=== PATIENT | male | born 1960 | race Caucasian/White ===

== ENCOUNTER 2022-11-24 14:38 | Inpatient (IN) | payer OTHER, SELFPAY ==
[2022-11-24 14:48] VITALS: BP 186/93; PULSE 99; RESP 22; TEMP 36.6; O2SAT 96; BMI 25.1
--- NOTE | 2022-11-24 15:10 | PC.NURSE ---
Patient weepy stating they he just doesn`t want to be here anymore . Patient provided with water and lunch tray per his request. Patient provided with phone numbers from cell phone, changed into hospital attire, all belongings locked in locker 5.
[2022-11-24 15:29] LABS: MANUAL DIFF FLAG NO
[2022-11-24 15:31] LABS: Basophils Percent Auto 0.5 % (0-2); Eosinophils Absolute Auto 0.2 X10*3/uL (0.0-0.4); Hematocrit 43.7 % (42.0-52.0); Hemoglobin 14.8 g/dl (14.0-18.0); Imm Gran Abs Auto 0.07 X10*3/uL (0.00-0.03); Imm Gran Pct Auto 0.9 % (0.0-0.4); Lymphocytes Percent Auto 13.6 % (20-40); Mean Corpuscular HGB Conc 33.9 g/dl (31.0-36.0); Mean Corpuscular Hemoglobin 29.4 pg (27.0-33.0); Mean Corpuscular Volume 86.9 fL (80.0-98.0); Mean Platelet Volume 9.2 fL (9.4-12.4); Monocytes Absolute Auto 0.5 X10*3/uL (0.1-1.2); Monocytes Percent Auto 6.2 % (2-11); Neutrophils Absolute Auto 5.9 x10*3/uL (2.0-8.3); Neutrophils Percent Auto 76.8 % (45-73); Platelet Count 260 X10*3/uL (160-400); Red Blood Count 5.03 X10*6/uL (4.60-5.80); Red Cell Distribution Width 13.5 % (11.0-16.0); White Blood Count 7.6 X10*3/uL (4.8-10.8)
[2022-11-24 15:32] LABS: Appearance Urine Cloudy; Color Urine Yellow; Glucose Urine UA Negative (Negative); Leukocyte Esterase Urine Negative (Negative); Nitrite Urine Negative (Negative); Urine Blood Negative (Negative); Urine Ketones Negative (Negative); Urine Protein Trace mg/dL (Neg-Trace)
[2022-11-24 15:40] LABS: Amphetamine Screen Urine Not Detected (Not Detect); Barbiturates, Urine Not Detected (Not Detect); Benzodiazepines Screen Urine Not Detected (Not Detect); Cannabinoid Screen Urine Not Detected (Not Detect); Cocaine Screen Urine Not Detected (Not Detect); Fentanyl, urine Not Detected (Not Detect); Opiate Screen Urine Not Detected (Not Detect); Phencyclidine Screen Urine Not Detected (Not Detect)
--- NOTE | 2022-11-24 15:45 | PC.NURSE ---
Girlfriend Pat in to visit. Pat can be reached at [phone]
[2022-11-24 16:02] LABS: Alanine Aminotransferase 26 U/L (0-40); Albumin Level 3.9 g/dL (3.5-5.0); Alkaline Phosphatase 79 U/L (39-117); Anion Gap 15 (12-20); Aspartate Amino Transferase 12 U/L (5-37); Bilirubin Total 0.8 mg/dL (0.0-1.0); Blood Urea Nitrogen 16 mg/dL (9-16); Calcium 9.7 mg/dL (8.4-10.2); Carbon Dioxide 23 mmol/L (22-29); Chloride 104 mmol/L (96-108); Estimated Glomerular Filt Rate > 60; Ethanol < 10 mg/dL; Glucose Random 146 mg/dL (60-115); Potassium 3.8 mmol/L (3.3-5.1); Sodium 138 mmol/L (135-145)
[2022-11-24 16:03] LABS: Acetaminophen LAB < 17 mcg/mL (<30); Salicylate < 5.0 mg/dL (15-30)
--- NOTE | 2022-11-24 16:37 | ED_ITS ---
HPI - Psych General Chief Complaint: Psychiatric Symptoms Stated Complaint: crisis/ feeling suicidal Time Seen by Provider: 11/24/22 16:01 Source: patient and RN notes reviewed Mode of arrival: ambulatory Limitations: no limitations History of Present Illness HPI Narrative: This is a 62-year-old male, with a past medical history of hypothyroidism, depression, hypertension and hyperlipidemia, presenting to the emergency department with complaints of suicidal and homicidal ideations. Patient states that he has been under a significant amount of life stressors, and states that over this past month he has had intermittent thoughts of killing himself, his girlfriend and his cat. He states that he had a noose around his neck but did not think of a place that he could kill himself. He often time wishes that his girlfriend would get into a fatal car accident so he would no longer have to deal with the stressors that she is causing him. Patient also reports that his job is causing him stress. He also reports that his father in February. He does have a therapist who he speaks to on a regular basis who recommended him to come here to be further evaluated. He states that he is on Wellbutrin, unknown dose or diagnosis. He states that he also forgot to take his high blood pressure medication. He had a prior psych hospitalization at [facility] in 2004. He drinks alcohol socially, no illicit drug use, tobacco use. No auditory or visual hallucinations. No other complaints or concerns at this time. MD complaint: suicidal ideation, feels depressed, homicidal ideation and anxiety Onset (ago): month(s) Duration: constant History of same: Yes Relieving factors: therapy Exacerbating factors: none Context: not taking psychiatric medications and significant life stressor Associated psychiatric symptoms: depression, suicidal ideation and homicidal ideation Associated symptoms: denies other symptoms Treatments prior to arrival: none If self harm: admits thoughts of self harm and has plan Details of plan: hang himself Related Data Home Medications Medication Instructions Recorded Confirmed budesonide 160 mcg-glycopyr 9 2 inh inhalation DAILY 11/24/22 11/24/22 mcg-formot 4.8 mcg/actuation HFA inhaler (Breztri Aerosphere) bupropion HCl 150 mg 24 hr tablet, 150 mg PO DAILY 11/24/22 11/24/22 extended release levothyroxine 175 mcg tablet 175 mcg PO DAILY 11/24/22 11/24/22 lisinopril 20 mg tablet 20 mg PO DAILY 11/24/22 11/24/22 lorazepam 0.5 mg tablet 0.5 mg PO DAILY PRN Anxiety 11/24/22 11/24/22 tamsulosin 0.4 mg capsule 0.4 mg PO DAILY 11/24/22 11/24/22 trazodone 50 mg tablet 50 mg PO BEDTIME 11/24/22 11/24/22 Allergies Allergy/AdvReac Type Severity Reaction Status Date / Time cat dander Allergy Runny Nose Verified 11/24/22 14:48 dog dander Allergy Runny Nose Verified 11/24/22 14:48 pollen extracts Allergy Runny Nose Verified 11/24/22 14:48 Review of Systems 2 Review of Systems: Yes all other systems are reviewed and are negative Constitutional: Constitutional: Reports as per [facility] Past Medical History Medical History (Updated 11/24/22 @ 19:17 by WANDA Rodriguez) Hypertension Social History Social History Smoked in Last 30 Days: No Use of substances other than those prescribed or required for medical reasons: Yes Substance Use Type: Marijuana Substance Use Frequency: Monthly Advance Directives: No Advance Directives Information Provided: No Healthcare Proxy: No Guardian: No Physical Exam 2 Vital Signs: Vital Signs: Last Vital Signs Temp 97.9 F 11/24/22 19:58 Pulse 85 11/24/22 19:58 Resp 20 11/24/22 19:58 BP 139/89 11/24/22 19:58 Pulse Ox 95 11/24/22 19:58 O2 Del Method Room Air 11/24/22 19:58 BMI result Body Mass Index 25.1 Const: Other: tearful General: cooperative, comfortable and no acute distress O rientation/consciousness: patient oriented x3 Limitations: no limitations HEENT: Head: Yes normal to inspection, Yes normocephalic and Yes atraumatic Ears: hearing grossly normal bilaterally General nose exam: Normal external nose present Face and sinus: Yes normal facial exam Mouth: Normal oral and palatal mucosa present, oropharynx normal and moist mucous membranes Throat: Yes posterior oropharynx normal Eyes: General: appearance normal, both eyes and all related structures E yelids: Yes eyelids normal Conjunctivae: conjunctivae normal Sclerae: s clerae normal Pupils: Equal, round and reactive pupils present EOM: EOMs intact bilaterally Neck: Neck: Yes normal visual inspection, Yes full ROM and Yes no lymphadenopathy Lymphatic: no lymphadenopathy noted Chest: Chest palpation & inspection: normal inspection of the chest Resp: Effort & Inspection: normal respiratory effort and able to speak in complete sentences Auscultation: clear to auscultation bilaterally, no crackles, no rales, no rhonchi and no wheezes Cardio: Rate: regular rate Rhythm: regular rhythm Heart sounds: S1 normal heart sound present and S2 normal heart sound present GI: Inspection: Yes normal to inspection Skin: General skin exam: no rashes or lesions noted Trauma: no lacerations or abrasions Wounds: no wounds Neuro: General: patient oriented x3 and moves all extremities Cranial nerves: Yes Equal, round and reactive pupils present Extrem: General: Yes normal to inspection Right upper extremity: normal to inspection Left upper extremity: normal to inspection Right lower extremity: normal to inspection Left lower extremity: normal to inspection Psych: Appearance: grossly normal Mental Status: mental status grossly normal Speech and movement: Normal speech and movement present Affect: n ormal affect Attitude: cooperative Thought process: Normal thought process present Thought content: Suicidality present, Homicidality present and Depressive thoughts present Insight: Poor insight present (Psych) J udgement: Poor judgement present (Psych) Course Reevaluation(s) Reevaluation #1: TSH within normal limits. Patient medically cleared, pending crisis in care team consultation. Will continue to monitor. Time: 18:00 Reevaluation #2: patient was seen and evaluated by the crisis team. Patient qualifying for bed search and inpatient psychiatric admission. Bed request placed. Med reconciliation performed. transfer care initiated. Time: 19:08 Medications Administered Generic Name Dose Route Start Last Admin Trade Name Chrisq PRN Reason Stop Dose Admin Lisinopril 20 mg 11/24/22 21:00 11/24/22 20:11 Lisinopril 20 Mg Tablet PO 20 mg BEDTIME ALDO Administration Protocol Tamsulosin HCl 0.4 mg 11/24/22 21:00 11/24/22 20:11 Tamsulosin Hcl 0.4 Mg Capsule PO 0.4 mg BEDTIME ALDO Administration Trazodone HCl 50 mg 11/24/22 21:00 11/24/22 20:11 Trazodone Hcl 50 Mg Tablet PO 50 mg BEDTIME ALDO Administration Medical Decision Making Medical Decision Making MDM Narrative: 62-year-old male, with a past medical history of depression, hypothyroidism, hypertension, and hyperlipidemia, presenting to the emergency department with complaints of suicidal and homicidal ideations. On arrival, patient hypertensive at 186/93, respirations 22, likely due to stressors. I discussed at length patient's presentation, he does have a suicidal plan also reporting homicidal ideations. repeat blood pressure 143/95, all other vital signs within normal limits. Patient states that he has been without his levothyroxine for several months, was taking levothyroxine 200 mcgs daily. Patient has no chest pain, shortness of breath, abdominal pain, nausea, vomiting or diarrhea. No auditory or visual hallucinations. Plan: Labs, urine drug screen, ethanol level, TSH Differential Diagnosis Differential Diagnoses: The differential diagnosis associated with the presentation includes depression, anxiety, suicidal ideation, homicidal ideation Admission/Observation Consideration of admission/observation: Escalation of care including admission/observation considered escalation of care including admission observation was considered given suicidality and homicidality Lab Data [facility] Lab Attestation statement: I reviewed the patient's lab results. no leukocytosis, stable H&H, electrolytes within normal limits, mildly hyperglycemic at 1:46 a.m. however not fasting. Urine drug screen without any evidence of infection. Urine drug screen unremarkable, ethyl alcohol less than 10. 11/24/22 15:24 11/24/22 15:24 Labs: Lab Results 11/24/22 11/24/22 Range/Units 15:15 15:24 WBC 7.6 (4.8-10.8) X10*3/uL RBC 5.03 (4.60-5.80) X10*6/uL Hgb 14.8 (14.0-18.0) g/dl Hct 43.7 (42.0-52.0) % MCV 86.9 (80.0-98.0) fL MCH 29.4 (27.0-33.0) pg MCHC 33.9 (31.0-36.0) g/dl RDW 13.5 (11.0-16.0) % Plt Count 260 (160-400) X10*3/uL MPV 9.2 L (9.4-12.4) fL Immature Gran % (Auto) 0.9 H (0.0-0.4) % Neut % (Auto) 76.8 H (45-73) % Lymph % (Auto) 13.6 L (20-40) % [place] % (Auto) 6.2 (2-11) % Eos % (Auto) 2.0 (0-4) % Baso % (Auto) 0.5 (0-2) % Lymph # (Auto) 1.0 L (1.2-4.9) X10*3/uL [place] # (Auto) 0.5 (0.1-1.2) X10*3/uL Eos # (Auto) 0.2 (0.0-0.4) X10*3/uL Baso # (Auto) 0.0 (0.0-0.2) X10*3/uL Abs Immat Gran (auto) 0.07 H (0.00-0.03) X10*3/uL Absolute Neuts (auto) 5.9 (2.0-8.3) x10*3/uL Absolute Nucleated RBC 0.000 (0.0-0.012) X10*3/uL Nucleated RBC % (auto) 0.0 (0.0-0.2) /100WBC Sodium 138 (135-145) mmol/L Potassium 3.8 (3.3-5.1) mmol/L Chloride 104 (96-108) mmol/L Carbon Dioxide 23 (22-29) mmol/L Anion Gap 15 (12-20) BUN 16 (9-16) mg/dL Creatinine 1.02 (0.5-1.4) mg/dL Estim Creat Clear Calc 81.0 Estimated GFR > 60 Random Glucose 146 H (60-115) mg/dL Calcium 9.7 (8.4-10.2) mg/dL Total Bilirubin 0.8 (0.0-1.0) mg/dL AST 12 (5-37) U/L ALT 26 (0-40) U/L Alkaline Phosphatase 79 (39-117) U/L Total Protein 7.0 (6.5-8.0) g/dL Albumin 3.9 (3.5-5.0) g/dL TSH 2.03 (0.32-4.0) uIU/mL Urine Color Yellow Urine Appearance Cloudy Urine pH 7.0 (5.0-9.0) Ur Specific [place] 1.020 (1.005-1.025) Urine Protein Trace (Neg-Trace) mg/dL Urine Glucose (UA) Negative (Negative) mg/dL Urine Ketones Negative (Negative) mg/dL Urine Blood Negative (Negative) Urine Nitrite Negative (Negative) Ur Leukocyte Esterase Negative (Negative) Salicylates < 5.0 L (15-30) mg/dL Urine Opiates Screen Not Detected (Not Detect) Urine Fentanyl Screen Not Detected (Not Detect) Acetaminophen < 17 (<30) mcg/mL Ur Barbiturates Screen Not Detected (Not Detect) Ur Phencyclidine Scrn Not Detected (Not Detect) Ur Amphetamines Screen Not Detected (Not Detect) U Benzodiazepines Scrn Not Detected (Not Detect) Urine Cocaine Screen Not Detected (Not Detect) U Marijuana (THC) Screen Not Detected (Not Detect) Ethyl Alcohol < 10 mg/dL Discharge Plan Discharge Clinical Impression: Suicidal ideation, Homicidal ideations Patient Disposition: Admitted As Inpatient Interventions: [place]-Suicide Risk Severity Scale Last Done: 11/24/22 14:53
[2022-11-24 16:40] VITALS: BP 143/95; PULSE 77; RESP 18; TEMP 36.6; O2SAT 97
[2022-11-24 17:51] LABS: Thyroid Stimulating Hormone 2.03 uIU/mL (0.32-4.0)
[2022-11-24 19:58] VITALS: BP 139/89; PULSE 85; RESP 20; TEMP 36.6; O2SAT 95
[2022-11-24] MEDS: traZODone HCL 50 MG TABLET PO (20:11)
[2022-11-24] MEDS: Tamsulosin HCL 0.4 MG CAPSULE PO (20:11)
[2022-11-24] MEDS: lisinopriL 20 MG TABLET PO (20:11)
--- NOTE | 2022-11-25 | ECG_ITS ---
Test Reason : BED SEARCH Blood Pressure : / mmHG Vent. Rate : 067 BPM Atrial Rate : 067 BPM P-R Int : 138 ms QRS Dur : 106 ms QT Int : 410 ms P-R-T Axes : 030 084 028 degrees QTc Int : 433 ms Normal sinus rhythm Nonspecific ST abnormality Inferior leads RSR' or QR pattern in V1 suggests right ventricular conduction delay Abnormal ECG No previous ECGs available Referred By: America Mcdowell Electronically Signed By:NICOLE LIZAMA MD
[2022-11-25 01:37] LABS: COVID-19 Test Negative (Negative); IDNOW Serial# 08D9AD1C
[2022-11-25 05:24] VITALS: BP 126/54; PULSE 65; RESP 16; TEMP 36.2; O2SAT 97
[2022-11-25] MEDS: Levothyroxine Sodium 175 MCG TABLET PO (05:35)
--- NOTE | 2022-11-25 06:26 | PC.NURSE ---
Patient slept through the night, no distress observed/reported, disposition per care team is section 12 inpatient bed search, pre-accepted to either M3 or M5, medication compliant, behavior non concerning, labs completed/resulted, patient is on one to one while on CPAP, will continue to monitor.
[2022-11-25] MEDS: buPROPion HCl XL 150 MG TAB.ER.24H PO (09:10)
--- NOTE | 2022-11-25 10:45 | PC.NURSE ---
Gilbert was in his room resting this morning. He was agreeable to taking his scheduled Wellbutrin and ate 100% of his breakfast. Affect flat when engaged and then quickly tearful. Gilbert requested the phone and spoke with his step mother which he reprots was fine . Denies HI/AVH does endorse SI and verbalize's feeling safe while in the hospital. No behavioral concerns
[2022-11-25 12:22] VITALS: BP 123/82; PULSE 74; RESP 16; TEMP 36.3; O2SAT 96
[2022-11-25 16:50] VITALS: RESP 18
--- OUTSIDE RECORDS SUMMARY | 2022-11-25 18:36 | XMS_ITS | Continuity of Care Document ---
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
--- OUTSIDE RECORDS SUMMARY | 2022-11-25 18:36 | XMS_ITS | Continuity of Care Document ---
Author Name Unknown Organization 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 [address] [place] [address]- Attending Physician: Admtr, Ar8 Admitting Physician: Admtr, Ar8 Referring Physician: Admtr, Ar8 Allergies, Adverse Reactions, Alerts Substance Reaction Severity Status NKA Active
[2022-11-25] MEDS: lisinopriL 20 MG TABLET PO (21:18)
[2022-11-25] MEDS: Tamsulosin HCL 0.4 MG CAPSULE PO (21:19)
[2022-11-25 21:56] VITALS: BP 138/70; PULSE 90; RESP 18; TEMP 36.7; O2SAT 95
[2022-11-25 21:57] VITALS: BMI 28.6
[2022-11-25] MEDS: LORazepam 0.5 MG TABLET PO (22:27)
[2022-11-25 23:57] VITALS: PULSE 90; O2SAT 95
--- NOTE | 2022-11-26 01:44 | PC.ADMIT ---
Gilbert Azevedo is a 62yo cisgender male, admitted to M3 from [facility] ED on a CV for treatment of unspecified depressive disorder. He reported increase in depressive symptoms with life stressors including loss of his father earlier in the year, relationship issues which have become unmanageable. He states that he have been experiencing insomnia,weight loss, increase agitation and thought of self harm. He reported having having SI with plan of hanging himself from the apartment with a rope which he showed his partner during an argument several days ago. He stated that the reason why he didn't hang himself is because of people who care about him. He reports feelings of helplessness, hopelessness and deep depression. He endorsed thought of killing his girlfriend, then the cat and himself. He is alert and oriented X4, calm and cooperative, mood is depressed and affect is flat. He have medical conditions of asthma and sleep apnea, slept with the aid of CPAP at night. Meds compliant, denies AH/VH but endorses SI with no plan. Admission process completed, treatment plan and safety tools initiated
[2022-11-26] MEDS: Levothyroxine Sodium 175 MCG TABLET PO (06:57)
[2022-11-26] MEDS: buPROPion HCl XL 150 MG TAB.ER.24H PO (08:32)
[2022-11-26 08:40] VITALS: BP 104/61; PULSE 77; RESP 16; TEMP 36.3; O2SAT 98
[2022-11-26 09:09] LABS: Estimated Average Glucose 117 mg/dL; Hemoglobin A1c % 5.7 % (<6.0)
[2022-11-26 09:24] LABS: Cholesterol 268 mg/dL (<200); HDL Cholesterol 37 mg/dL (>40); LDL Cholesterol Calculated 156 mg/dL (<100); Magnesium 2.1 mg/dL (1.6-2.6); Triglycerides 376 mg/dL (<150)
[2022-11-26 09:47] LABS: Folate 7.3 ng/mL (> or = 4.0); Vitamin B12 299 pg/mL (200-900)
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
[2022-11-26] MEDS: FLUoxetine HCl 10 MG CAPSULE PO (16:09)
[2022-11-26] MEDS: LORazepam 0.5 MG TABLET PO (17:24)
[2022-11-26 19:35] VITALS: BP 153/79; PULSE 85; RESP 18; TEMP 36.9; O2SAT 96
[2022-11-26] MEDS: Tamsulosin HCL 0.4 MG CAPSULE PO (21:23)
[2022-11-26] MEDS: lisinopriL 20 MG TABLET PO (21:23)
[2022-11-26 21:50] VITALS: BP 161/78; PULSE 100; RESP 18; TEMP 37.1; O2SAT 93
[2022-11-26] MEDS: traZODone HCL 50 MG TABLET PO (23:24)
[2022-11-27 00:10] VITALS: PULSE 80; RESP 16; O2SAT 96
[2022-11-27] MEDS: Levothyroxine Sodium 175 MCG TABLET PO (06:45)
[2022-11-27 07:00] VITALS: BMI 28.6
[2022-11-27 07:20] VITALS: BP 130/73; PULSE 85; RESP 18; TEMP 36.4; O2SAT 98
[2022-11-27] MEDS: FLUoxetine HCl 10 MG CAPSULE PO (08:40)
[2022-11-27] MEDS: buPROPion HCl XL 300 MG TAB.ER.24H PO (08:40)
--- NOTE | 2022-11-27 15:32 | HO.PSYCHPN ---
Subjective Subjective Date of Service: 11/27/22 Reason For Visit: Depression w/ SI, HI Interim History: calm, cooperative. struggling with how to extricate himself from his relationship with his GF. discuss legal approaches, planning for discharge, medications. pt feeling trapped and hopeless at the moment. per staff, slept well. attending groups. phone call yesterday, upset afterward. Mental Status Exam Mental Status Exam Narrative: dressed in street clothes, adequately groomed. no PMA/PMR. cooperative. speech nml amount, nml rate, loudness, tone, latency. thoughts linear and logical. affect constricted, non-labile, normo-intense. no SI/HI/AVH expressed. Diagnostics Vital Signs (24Hr): Vital Signs - 24 hr 11/26/22 19:35 11/26/22 21:50 11/27/22 00:10 Temperature 98.4 F 98.8 F Pulse Rate 85 100 Respiratory Rate 18 18 16 Blood Pressure 153/79 H 161/78 H Pulse Oximetry 96 93 Oxygen Delivery Method Room Air Room Air 11/27/22 07:20 Temperature 97.5 F Pulse Rate 85 Respiratory Rate 18 Blood Pressure 130/73 Pulse Oximetry 98 Oxygen Delivery Method Room Air BMI result Body Mass Index 28.6 Labs 11/24/22 15:24 11/24/22 15:24 Labs: Laboratory Results - last 48 hr 11/26/22 08:26 Estimat Average Glucose 117 Hemoglobin A1c % 5.7 Magnesium 2.1 Triglycerides 376 H Cholesterol 268 H LDL Cholesterol, Calc 156 H HDL Cholesterol 37 L Vitamin B12 299 Folate 7.3 Free T4 1.00 Medications Medications Current Medications Acetaminophen (Acetaminophen 325 Mg Tablet) 650 mg PO Q6H PRN PRN Reason: Headache/Pain Mild Scale (1-3) Al Hydroxide/Mg Hydroxide (Magnesium Hydrox/Alum Hydrox 30 Ml Oral.Susp) 30 ml PO Q6H PRN PRN Reason: Heartburn/Nausea Bupropion HCl (Bupropion Hcl Xl 300 Mg Tab.Er.24h) 300 mg PO DAILY [facility] Last Admin: 11/27/22 08:40 Dose: 300 mg Fluoxetine HCl (Fluoxetine Hcl 10 Mg Capsule) 10 mg PO DAILY [facility] Last Admin: 11/27/22 08:40 Dose: 10 mg Hydroxyzine HCl (Hydroxyzine Hcl 25 Mg Tablet) 25 mg PO Q6H PRN PRN Reason: Anxiety Levothyroxine Sodium (Levothyroxine Sodium 175 Mcg Tablet) 175 mcg PO DAILY@0600 [facility] Last Admin: 11/27/22 06:45 Dose: 175 mcg Lisinopril (Lisinopril 20 Mg Tablet) 20 mg PO BEDTIME [facility]; Protocol Last Admin: 11/26/22 21:23 Dose: 20 mg Lorazepam (Lorazepam 0.5 Mg Tablet) 0.5 mg PO DAILY PRN PRN Reason: Anxiety Last Admin: 11/26/22 17:24 Dose: 0.5 mg Magnesium Hydroxide (Milk Of Magnesia 30 Ml Oral.Susp) 30 ml PO DAILY PRN PRN Reason: Constipation Non-Formulary Medication (Pqklnpdbya-Hbyiytit-Tjsdrjvxjw [Breztri Aerosphere]) 2 inhalation INHALE DAILY [facility] Tamsulosin HCl (Tamsulosin Hcl 0.4 Mg Capsule) 0.4 mg PO BEDTIME [facility] Last Admin: 11/26/22 21:23 Dose: 0.4 mg Trazodone HCl (Trazodone Hcl 50 Mg Tablet) 50 mg PO BEDTIME [facility] Last Admin: 11/26/22 23:24 Dose: 50 mg Trazodone HCl (Trazodone Hcl 50 Mg Tablet) 50 mg PO BEDTIME PRN PRN Reason: Insomnia Allergies Allergies Allergy/AdvReac Type Severity Reaction Status Date / Time cat dander Allergy Runny Nose Verified 11/24/22 14:48 dog dander Allergy Runny Nose Verified 11/24/22 14:48 pollen extracts Allergy Runny Nose Verified 11/24/22 14:48 Assessment & Plan Assessment & Plan (1) Major depressive disorder: Qualifiers: Major depression recurrence: unspecified whether recurrent Active/Remission status: currently active Major depression episode severity: moderate Qualified Code(s): F32.1 - Major depressive disorder, single episode, moderate Status: Acute Code(s): F32.9 - Major depressive disorder, single episode, unspecified Plan 11/26: increase wellbutrin from 150 mg daily to 300 mg daily as of tomorrow. start prozac 10 mg today. collateral. 11/27: no side effects. plan to continue meds and work on coping skills, processing emotions. continue current mgmt. Reason for continued inpatient stay Substantial Risk for: inability to function Time Spent With Patient Time: Total time managing care of this patient today ____ minutes.
[2022-11-27 21:30] VITALS: BP 135/85; PULSE 84; RESP 18; TEMP 36.5; O2SAT 98
[2022-11-27] MEDS: lisinopriL 20 MG TABLET PO (21:56)
[2022-11-27] MEDS: Tamsulosin HCL 0.4 MG CAPSULE PO (21:56)
[2022-11-28] MEDS: Levothyroxine Sodium 175 MCG TABLET PO (07:05)
[2022-11-28 08:00] VITALS: BP 118/57; PULSE 71; RESP 18; TEMP 36.2; O2SAT 98
[2022-11-28] MEDS: FLUoxetine HCl 10 MG CAPSULE PO (08:46)
[2022-11-28] MEDS: buPROPion HCl XL 300 MG TAB.ER.24H PO (08:46)
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
[2022-11-28] MEDS: LORazepam 0.5 MG TABLET PO (19:28)
[2022-11-28 21:50] VITALS: BP 165/93; PULSE 82; RESP 18; TEMP 36.3; O2SAT 96
[2022-11-28] MEDS: traZODone HCL 25 MG HALFTAB PO (21:57)
[2022-11-28] MEDS: lisinopriL 20 MG TABLET PO (21:58)
[2022-11-28] MEDS: Tamsulosin HCL 0.4 MG CAPSULE PO (21:58)
[2022-11-29] MEDS: Levothyroxine Sodium 175 MCG TABLET PO (06:20)
[2022-11-29 08:40] VITALS: BP 117/59; PULSE 82; RESP 18; O2SAT 96
[2022-11-29] MEDS: buPROPion HCl XL 300 MG TAB.ER.24H PO (08:41)
[2022-11-29] MEDS: FLUoxetine HCl 10 MG CAPSULE PO (08:41)
--- NOTE | 2022-11-29 10:19 | P.PNPSI_ITS ---
Subjective Subjective Date of Service: 11/29/22 Reason For Visit: Depression w/ SI, HI Subjective Notes: Conditional Voluntary Interim History: Pt seems to be better dealing with breakup with partner who has pathological jealousy works for [employer] There is a clear ongoing fragility reactivity anticipation Medication Compliance: Yes Mental Status Exam Mental Status Exam Patient Appearance: Well Grooomed Patient Orientation: Person, Place, Time and Situation Level of Consciousness: Awake and Appropriate Patient Behavior: Appropriate Mood Description: Depressed and Blunted Affect Description: Appropriate and Constricted Patient Cognition Impaired: No Ability to Follow Directions: Good Speech Pattern: Clear Memory Description: Intact Hallucinations: None Delusions: Not Present Thought Process: Intact and Goal Oriented Thought Content: positive for Goal Oriented, positive for Preoccupation, negative for Suicidal Ideation or negative for Homicidal Ideation Depressive Symptoms: Increased Anxiety, Increased Fatigue, Loss of Energy and Difficulty Concentrating Judgement: Fair Judgement and Insight: trying to manage issues around break up continues to feel somewhat fragile Diagnostics Vital Signs (24Hr): Vital Signs - 24 hr 11/28/22 21:50 11/29/22 08:40 Temperature 97.3 F Pulse Rate 82 82 Respiratory Rate 18 18 Blood Pressure 165/93 H 117/59 L Pulse Oximetry 96 96 Oxygen Delivery Method Room Air Room Air BMI result Body Mass Index 28.6 Labs 11/24/22 15:24 11/24/22 15:24 Medications Medications Current Medications Acetaminophen (Acetaminophen 325 Mg Tablet) 650 mg PO Q6H PRN PRN Reason: Headache/Pain Mild Scale (1-3) Al Hydroxide/Mg Hydroxide (Magnesium Hydrox/Alum Hydrox 30 Ml Oral.Susp) 30 ml PO Q6H PRN PRN Reason: Heartburn/Nausea Bupropion HCl (Bupropion Hcl Xl 300 Mg Tab.Er.24h) 300 mg PO DAILY [facility] Last Admin: 11/29/22 08:41 Dose: 300 mg Fluoxetine HCl (Fluoxetine Hcl 10 Mg Capsule) 10 mg PO DAILY [facility] Last Admin: 11/29/22 08:41 Dose: 10 mg Hydroxyzine HCl (Hydroxyzine Hcl 25 Mg Tablet) 25 mg PO Q6H PRN PRN Reason: Anxiety Levothyroxine Sodium (Levothyroxine Sodium 175 Mcg Tablet) 175 mcg PO DAILY@0600 [facility] Last Admin: 11/29/22 06:20 Dose: 175 mcg Lisinopril (Lisinopril 20 Mg Tablet) 20 mg PO BEDTIME [facility]; Protocol Last Admin: 11/28/22 21:58 Dose: 20 mg Lorazepam (Lorazepam 0.5 Mg Tablet) 0.5 mg PO DAILY PRN PRN Reason: Anxiety Last Admin: 11/28/22 19:28 Dose: 0.5 mg Magnesium Hydroxide (Milk Of Magnesia 30 Ml Oral.Susp) 30 ml PO DAILY PRN PRN Reason: Constipation Non-Formulary Medication (Zsvjplevkk-Apgekihx-Xytlnlrdpt [Breztri Aerosphere]) 2 inhalation INHALE DAILY [facility] Tamsulosin HCl (Tamsulosin Hcl 0.4 Mg Capsule) 0.4 mg PO BEDTIME [facility] Last Admin: 11/28/22 21:58 Dose: 0.4 mg Trazodone HCl (Trazodone Hcl 50 Mg Tablet) 50 mg PO BEDTIME PRN PRN Reason: Insomnia Trazodone HCl (Trazodone Hcl 25 Mg Halftab) 25 mg PO BEDTIME [facility] Last Admin: 11/28/22 21:57 Dose: 25 mg Allergies Allergies Allergy/AdvReac Type Severity Reaction Status Date / Time cat dander Allergy Runny Nose Verified 11/24/22 14:48 dog dander Allergy Runny Nose Verified 11/24/22 14:48 pollen extracts Allergy Runny Nose Verified 11/24/22 14:48 Assessment & Plan Assessment & Plan (1) Major depressive disorder: Qualifiers: Active/Remission status: currently active Major depression episode severity: moderate Major depression recurrence: unspecified whether recurrent Qualified Code(s): F32.1 - Major depressive disorder, single episode, moderate Status: Acute Code(s): F32.9 - Major depressive disorder, single episode, unspecified Plan 11/26: increase wellbutrin from 150 mg daily to 300 mg daily as of tomorrow. start prozac 10 mg today. collateral. 11/27: no side effects. plan to continue meds and work on coping skills, processing emotions. continue current mgmt. 11/28: decrease trazodone dosing from 50 to 25 due to morning sedation. goal to work on coping skills/distress tolerance. continue current Tx otherwise. remains labile, overwhelmed. 11/29/22 Pt seem less distraught calmer trying to extricate himself from relation ship Reason for continued inpatient stay Substantial Risk for: harm to self and rapid decompensation Time Spent With Patient Time: Total time managing care of this patient today ____ minutes.
[2022-11-29 19:55] VITALS: BP 162/95; PULSE 84; RESP 16; TEMP 36.6; O2SAT 95
[2022-11-29] MEDS: lisinopriL 20 MG TABLET PO (20:40)
[2022-11-29] MEDS: Tamsulosin HCL 0.4 MG CAPSULE PO (20:40)
[2022-11-30] MEDS: hydrOXYzine HCL 25 MG TABLET PO (03:58)
[2022-11-30] MEDS: Levothyroxine Sodium 175 MCG TABLET PO (06:26)
[2022-11-30 08:16] VITALS: BP 144/90; PULSE 86; RESP 16; TEMP 36.4; O2SAT 97
[2022-11-30] MEDS: FLUoxetine HCl 10 MG CAPSULE PO (09:12)
[2022-11-30] MEDS: buPROPion HCl XL 300 MG TAB.ER.24H PO (09:12)
[2022-11-30 21:00] VITALS: BP 150/90; PULSE 90; RESP 16; TEMP 36.4; O2SAT 96
[2022-11-30] MEDS: Tamsulosin HCL 0.4 MG CAPSULE PO (21:14)
[2022-11-30] MEDS: lisinopriL 20 MG TABLET PO (21:14)
[2022-11-30] MEDS: QUEtiapine Fumarate 25 MG TABLET PO (21:15)
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
[2022-12-01] MEDS: Levothyroxine Sodium 175 MCG TABLET PO (06:38)
[2022-12-01 08:23] VITALS: BP 128/60; PULSE 72; RESP 16; TEMP 36.4; O2SAT 92
[2022-12-01] MEDS: FLUoxetine HCl 20 MG CAPSULE PO (08:43)
[2022-12-01] MEDS: buPROPion HCl XL 150 MG TAB.ER.24H PO (08:43)
--- NOTE | 2022-12-01 13:03 | PM.PSYDC ---
DS: Providers Provider Date of Service: 12/01/22 Date of admission: 11/25/22 18:23 Primary care physician: Unknown Physician DS: Diagnosis Discharge Diagnosis (1) Major depressive disorder: Status: Acute DS: Medications Discharge Medications Home Medications: Home Medications Medication Instructions Recorded Confirmed budesonide 160 mcg-glycopyr 9 2 inh inhalation DAILY 11/24/22 11/24/22 mcg-formot 4.8 mcg/actuation HFA inhaler (Breztri Aerosphere) bupropion HCl 150 mg 24 hr tablet, 150 mg PO DAILY 11/24/22 11/24/22 extended release levothyroxine 175 mcg tablet 175 mcg PO DAILY 11/24/22 11/24/22 lisinopril 20 mg tablet 20 mg PO DAILY 11/24/22 11/24/22 lorazepam 0.5 mg tablet 0.5 mg PO DAILY PRN Anxiety 11/24/22 11/24/22 tamsulosin 0.4 mg capsule 0.4 mg PO DAILY 11/24/22 11/24/22 trazodone 50 mg tablet 50 mg PO BEDTIME 11/24/22 11/24/22 Previous Rx's Medication Instructions Recorded fluoxetine 20 mg capsule 20 mg PO DAILY 30 days #30 caps 12/01/22 hydroxyzine HCl 25 mg tablet 25 mg PO BID PRN Anxiety 30 days 12/01/22 #60 tabs quetiapine 25 mg tablet 25 mg PO BEDTIME 30 days #30 tabs 12/01/22 Mental Status Exam Mental Status Exam Narrative: dressed in street clothes, adequately groomed. no PMA/PMR. cooperative. speech nml amount, nml rate, loudness, tone, latency. thoughts linear and logical. affect constricted, mod-labile (tearful), normo-intense. mood anxious. scared. sad. no SI/HI/AVH. Data Data Completed and Pending Completed studies during hospitalization [Text1]: 11/24/22 11/24/22 11/25/22 15:15 15:24 01:14 WBC 7.6 RBC 5.03 Hgb 14.8 Hct 43.7 MCV 86.9 MCH 29.4 MCHC 33.9 RDW 13.5 Plt Count 260 MPV 9.2 L Immature Gran % (Auto) 0.9 H Neut % (Auto) 76.8 H Lymph % (Auto) 13.6 L [place] % (Auto) 6.2 Eos % (Auto) 2.0 Baso % (Auto) 0.5 Lymph # (Auto) 1.0 L [place] # (Auto) 0.5 Eos # (Auto) 0.2 Baso # (Auto) 0.0 Abs Immat Gran (auto) 0.07 H Absolute Neuts (auto) 5.9 Absolute Nucleated RBC 0.000 Nucleated RBC % (auto) 0.0 Sodium 138 Potassium 3.8 Chloride 104 Carbon Dioxide 23 Anion Gap 15 BUN 16 Creatinine 1.02 Estim Creat Clear Calc 81.0 Estimated GFR > 60 Random Glucose 146 H Estimat Average Glucose Hemoglobin A1c % Calcium 9.7 Magnesium Total Bilirubin 0.8 AST 12 ALT 26 Alkaline Phosphatase 79 Total Protein 7.0 Albumin 3.9 Triglycerides Cholesterol LDL Cholesterol, Calc HDL Cholesterol Vitamin B12 Folate TSH 2.03 Free T4 Urine Color Yellow Urine Appearance Cloudy Urine pH 7.0 Ur Specific [place] 1.020 Urine Protein Trace Urine Glucose (UA) Negative Urine Ketones Negative Urine Blood Negative Urine Nitrite Negative Ur Leukocyte Esterase Negative Salicylates < 5.0 L Urine Opiates Screen Not Detected Urine Fentanyl Screen Not Detected Acetaminophen < 17 Ur Barbiturates Screen Not Detected Ur Phencyclidine Scrn Not Detected Ur Amphetamines Screen Not Detected U Benzodiazepines Scrn Not Detected Urine Cocaine Screen Not Detected U Marijuana (THC) Screen Not Detected Ethyl Alcohol < 10 COVID-19 ([facility]) Negative COVID-19 Clin Com See Note 11/26/22 08:26 WBC RBC Hgb Hct MCV MCH MCHC RDW Plt Count MPV Immature Gran % (Auto) Neut % (Auto) Lymph % (Auto) [place] % (Auto) Eos % (Auto) Baso % (Auto) Lymph # (Auto) [place] # (Auto) Eos # (Auto) Baso # (Auto) Abs Immat Gran (auto) Absolute Neuts (auto) Absolute Nucleated RBC Nucleated RBC % (auto) Sodium Potassium Chloride Carbon Dioxide Anion Gap BUN Creatinine Estim Creat Clear Calc Estimated GFR Random Glucose Estimat Average Glucose 117 Hemoglobin A1c % 5.7 Calcium Magnesium 2.1 Total Bilirubin AST ALT Alkaline Phosphatase Total Protein Albumin Triglycerides 376 H Cholesterol 268 H LDL Cholesterol, Calc 156 H HDL Cholesterol 37 L Vitamin B12 299 Folate 7.3 TSH Free T4 1.00 Urine Color Urine Appearance Urine pH Ur Specific [place] Urine Protein Urine Glucose (UA) Urine Ketones Urine Blood Urine Nitrite Ur Leukocyte Esterase Salicylates Urine Opiates Screen Urine Fentanyl Screen Acetaminophen Ur Barbiturates Screen Ur Phencyclidine Scrn Ur Amphetamines Screen U Benzodiazepines Scrn Urine Cocaine Screen U Marijuana (THC) Screen Ethyl Alcohol COVID-19 ([facility]) COVID-19 Clin Com DS: Summary Hospital Course Hospital Course: per 11/26 admission note: pr self-presented to ED c/o depression and SI in the setting of loss of his father earlier in 2022, substantial relationship strife, and looking to change jobs after experiencing a verbal warning at work. pt reported insomnia, weight loss, agitation, SI/SIBI/HI, hopelessness, helplessness, amotivation, anhedonia, decreased ADLs, irritability. he reported he has been having chronic arguments with his partner due to her jealous and controlling behaviors and recently had fashioned a noose and been looking around the apartment for places to hang himself. on interview with MD on unit pt's narrative consistent with that above. states he in fact placed the noose round his neck but did not tighten it or attempt to fasten it to anything. discusses interpersonal difficulties with GF, job stress, numerous life events he describes as traumatic which would not meet criteria as a traumatic event for DSM-5 purposes. states he is looking for some time and space to reflect on his position and sort himself out. discuss medications and medications Hx in detail. pt elects to increae wellbutrin to 300 mg daily, as MD recommends, and also to restart prozac 10 mg daily, which he had been on in the past and had some measure of relief from. Past Psychiatric History: hosps: none prior SA: denies SIB: denies outpt: no prescriber presently. sees therapist sreedhar acevedo in private practice in [place]. jonatan mcgrath (PCP) of [facility] had been prescribing meds. Medical Evaluation Reviewed: Yes [facility] Medical History (Updated 11/26/22 @ 16:36 by Gilbert Huang) Hypertension Narrative: hypothyroidism HTN hyperlipidemia CARLITOS, uses CPAP Family History: mother - MDD father - narcissistic Social History: born in [facility], moved to [place] at 5 yo. mother suffered from MDD and stayed in [facility], intermittently hospitalized. multiple half-sibs from his father. 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. Substance History: tobacco - none. cannabis - uses about once every other month. h/o heavier use. alcohol - drinks a few times per year, maximum 1 drink each occasion. cocaine - some in the 70s and 80s. mushrooms - sporadic about 10 years ago. Trauma History: no trauma Hx in the sense of qualifying for PTSD Dx, but pt identifies having been torn from his mother at a young age due to her entering a psychiatric facility, having been made by his father to write a letter to his mother telling her to stay away from him, having been threatened with assault by a [facility] subway helicopter technician when attempting to ask helicopter technician for help, having been kicked in the [place] by his step-mother once for refusing to pick his sibling up from the library, and having been arrested for arson by the state police at [facility] all as traumatic experiences. Precis: 11/26: increase wellbutrin from 150 mg daily to 300 mg daily as of tomorrow. start prozac 10 mg today. collateral. 11/27: no side effects. plan to continue meds and work on coping skills, processing emotions. continue current mgmt. 11/28: decrease trazodone dosing from 50 to 25 due to morning sedation. goal to work on coping skills/distress tolerance. continue current Tx otherwise. remains labile, overwhelmed. 11/29: Pt seem less distraught calmer trying to extricate himself from relation ship 11/30: Patient does describe clear history of feeling more unstable on Wellbutrin with mood instability irritability reactivity. Discussed lowering Wellbutrin to 150 increasing fluoxetine to 20 mg targeting anxiety symptoms rumination Quetiapine 25 mg at bedtime been started given patient's level of anxiety rumination reactivity Continues to try to plan how to appropriately extricate himself from the situation. 12/01: stable. discharged to outpt care as per plan. safe. medications reviewed, reconciled, prescribed. Time Spent with Patient Time attestation: Total time managing care of this patient today ____ minutes. Time spent: Greater than 30 minutes Discharge Plan Discharge Anticipated Discharge Date/Time: 12/02/22 11:00 Patient Disposition: Home, Self-Care Discharge Diagnosis: Major Depressive Disorder Referrals: Sreedhar Acevedo [Other] - 12/10/22 2:00 pm (Therapy appt. ) Francisco Federman [employer] SAL[employer]ORDINATOR [Other] - 1 Week (Will be able to take you as new patient. He would like you to call him to schedule an available day. He has just opened . ) Jonatan Brewer MD [Physician] - 12/12/22 10:00 am (Confirmed appt. with Dr. Brewer, PCP for December 12, 2022 @ 10:00am [facility] [address] [facility] phone [phone]) Discharge Medications: New quetiapine 25 mg Tablet 25 mg PO BEDTIME 30 Days Qty: 30 0RF hydroxyzine HCl 25 mg Tablet 25 mg PO BID PRN (Reason: Anxiety) 30 Days Qty: 60 0RF fluoxetine 20 mg Capsule 20 mg PO DAILY 30 Days Qty: 30 0RF Continued trazodone 50 mg tablet 50 mg PO BEDTIME lisinopril 20 mg tablet 20 mg PO DAILY lorazepam 0.5 mg tablet 0.5 mg PO DAILY PRN (Reason: Anxiety) bupropion HCl 150 mg tablet extended release 24 hr 150 mg PO DAILY tamsulosin 0.4 mg capsule 0.4 mg PO DAILY levothyroxine 175 mcg tablet 175 mcg PO DAILY Breztri Aerosphere 160-9-4.8 mcg/actuation HFA aerosol inhaler 2 inh inhalation DAILY Discharge Orders: Discharge Order (Routine); Ordered 12/02/22 Ordered By: Gilbert Huang Diet: Advance to usual diet Activity on Discharge: As tolerated Stand Alone Forms: Patient Portal Discharge page, Community Support Care Plan Goals: remain safe and stable in the outpatient treatment setting. consider participating in the [facility] program to learn and practice coping skills. Health Concerns: none Plan of Treatment: take medications as prescribed. call Francisco Mcelroy to make a medication prescriber appointment. be in touch with the [facility] partial hospital program regarding participating. Assessment: not at imminent risk of harm to self or others Discharge Date/Time: 12/02/22 10:40
[2022-12-01] MEDS: hydrOXYzine HCL 25 MG TABLET PO (19:26)
[2022-12-01 20:35] VITALS: BP 164/93; PULSE 96; RESP 16; TEMP 36.6; O2SAT 97
[2022-12-01] MEDS: lisinopriL 20 MG TABLET PO (20:45)
[2022-12-01] MEDS: QUEtiapine Fumarate 25 MG TABLET PO (20:45)
[2022-12-01] MEDS: Tamsulosin HCL 0.4 MG CAPSULE PO (20:46)
[2022-12-02] MEDS: Levothyroxine Sodium 175 MCG TABLET PO (06:17)
[2022-12-02 08:54] VITALS: BP 148/76; PULSE 90; RESP 18; TEMP 36.2; O2SAT 96
[2022-12-02] MEDS: FLUoxetine HCl 20 MG CAPSULE PO (09:08)
[2022-12-02] MEDS: buPROPion HCl XL 150 MG TAB.ER.24H PO (09:08)
== END 2022-12-02 10:40 | disposition home or self-care (01) | DRG 751 ==
LOC: HO.ED 11-25 07:04 → HO.PADLT16 11-25 18:34
PROVIDERS: Clinical Nurse Specialist Psychiatric/Mental Health, Adult; Emergency Medicine; Physician Assistant Medical; Student in an Organized Health Care Education/Training Program; Admitting Provider Psychiatry & Neurology Psychiatry; Emergency Provider Emergency Medicine Emergency Medical Services; Visit Provider Psychiatry & Neurology Psychiatry
DX: F32.1 Major depressive disorder, single episode, moderate (principal); R45.851 Suicidal ideations; R45.850 Homicidal ideations; I10 Essential (primary) hypertension; E78.5 Hyperlipidemia, unspecified; G47.33 Obstructive sleep apnea (adult) (pediatric); E03.9 Hypothyroidism, unspecified; Z20.822 Contact with and (suspected) exposure to COVID-19; Z23 Encounter for immunization; Z79.890 Hormone replacement therapy; Z79.899 Other long term (current) drug therapy
CPT/HCPCS: 36415; 80053; 80061; 80143; 80179; 80307; 81003; 82607; 82746; 83036; 83735; 84439; 84443; 85025; 87635; 90686; 93005; 94660; 99285; S9485

== ENCOUNTER → 2022-11-25 18:23 | Outpatient (BNV) | payer OTHER, SELFPAY | PROVIDERS: Admitting Provider Psychiatry & Neurology Psychiatry; Emergency Provider Emergency Medicine Emergency Medical Services; Visit Provider Psychiatry & Neurology Psychiatry | DX: F32.1 Major depressive disorder, single episode, moderate (principal) | CPT/HCPCS: 90792; 99231; 99232; 99239 ==

== ENCOUNTER → 2022-11-25 18:23 | Outpatient (BNV) | payer OTHER, SELFPAY | PROVIDERS: Admitting Provider Psychiatry & Neurology Psychiatry; Emergency Provider Emergency Medicine Emergency Medical Services; Visit Provider Psychiatry & Neurology Psychiatry | DX: F32.1 Major depressive disorder, single episode, moderate (principal) | CPT/HCPCS: 99231; 99232 ==